=== PATIENT | male | born 1985 | race Hispanic/Latino ===

== ENCOUNTER 2018-05-03 10:14 | Emergency (ER) | payer SELFPAY ==
[2018-05-03] MEDS ORDERED: LIDOCAINE HCL 1% 20 ML VIAL ONE (10:32)
[2018-05-03] MEDS ORDERED: ACETAMINOPHEN EXTRA STRENGTH 500 MG TABLET ONE (10:41)
[2018-05-03] MEDS ORDERED: TETANUS/DIPHTHERIA TOXOID [ADULT] 0.5 ML VIAL IM ONE (10:41)
== END 2018-05-03 12:37 | disposition home or self-care (01) ==
LOC: EDH 10:14
DX: S81.811A Laceration without foreign body, right lower leg, initial encounter (principal); W29.3XXA Contact with powered garden and outdoor hand tools and machinery, initial encounter; Y93.H2 Activity, gardening and landscaping; Y92.096 Garden or yard of other non-institutional residence as the place of occurrence of the external cause; Y99.8 Other external cause status
CPT/HCPCS: 12035; 73590; 90471; 90714